=== PATIENT | female | born 1965 | race Caucasian/White ===

== ENCOUNTER 2023-05-13 19:11 | Emergency (ER) | payer OTHER, SELFPAY ==
--- NOTE | 2023-05-13 19:17 | ED_ITS ---
HPI - General Adult General Time Seen by Provider: 19:18 Date Seen: 05/13/23 Chief complaint: Unspecified Complaint, Adult Stated complaint: Bee sting Time Seen by Provider: 05/13/23 19:16 Source: patient, RN notes reviewed and old records reviewed Mode of arrival: ambulatory Limitations: no limitations History of Present Illness HPI narrative: 57-year-old female who comes in today with area of redness and pain after bee sting several days ago. She was seen at urgent care 2 days ago was started on Keflex for this, has had continued redness and warmth. She takes Singulair daily already and has been taking Claritin as well. Related Data Home Medications Medication Instructions Recorded Confirmed cholecalciferol (vitamin D3) 125 125 mcg PO QDAY 05/11/23 05/13/23 mcg (5,000 unit) capsule fexofenadine 180 mg tablet 180 mg PO Q24H 05/11/23 05/13/23 (Louisa Allergy) montelukast 10 mg tablet 10 mg PO DAILY 05/13/23 05/13/23 Previous Rx's Medication Instructions Recorded cephalexin 500 mg capsule 500 mg PO TID 7 days #21 caps 05/11/23 Allergies Allergy/AdvReac Type Severity Reaction Status Date / Time Sulfa (Sulfonamide Allergy Severe Anaphylaxis Verified 05/13/23 19:20 Antibiotics) Review of Systems Status of ROS: Reports: 10 or more systems reviewed and unremarkable except as noted in History and below Exam Narrative: Exam Narrative: General: well nourished , NAD Head: Atraumatic and normocephalic ENT: External ears and external nose are normal Eyes: Conjunctiva clear, pupils are equal reactive, external ocular motions are intact Neck: Full spontaneous range of motion of the neck Lungs: No respiratory distress Musculoskeletal: No tenderness or deformity Neurologic: No gross focal neurologic deficits Skin: Area of petechial erythema on the posterior calf on the right with jesenia tral 1 cm ruptured blister, this extends medially to the anterior medial lower leg. Trace edema distal to this. No redness or warmth of the ankle joint and no pain with passive movement Psych: Mood and affect are appropriate Const: Vital Signs, click to edit/add: Vital Signs - 24 hr 05/13/23 19:20 Temperature 97.7 F Pulse Rate [Pulse Oximeter] 80 Respiratory Rate 20 Blood Pressure [Ri ght Upper Arm] 132/75 Pulse Oximetry 97 Oxygen Delivery Me thod Room Air Course Course Hospital Course: Patient seen examined, prior records reviewed. Patient presents today with concern for an infected bee sting for which she is already on Keflex. On exam, this clinically appears to be a large local reaction, encourage patient to start taking antihistamines on a scheduled basis in addition to her Claritin and Singu lair. We discussed starting a prednisone burst but patient has had for reactions steroids in the past with need for prolonged taper and would like to avoid this. Will start doxycycline as cannot completely exclude infection, and have patient continue Keflex. Vital Signs Vital signs: Initial Vital Signs Temperature 97.7 F 05/13/23 19:20 Temperature Source Temporal Artery Scan 05/13/23 19:20 Pulse Rate 80 05/13/23 19:20 Pulse Rhythm Regular 05/13/23 19:20 Pulse Strength 3+ Normal 05/13/23 19:20 Respiratory Rate 20 05/13/23 19:20 Blood Pressure 132/75 05/13/23 19:20 Blood Pressure Mean 94 05/13/23 19:20 Pulse Oximetry 97 05/13/23 19:20 Oxygen Delivery Method Room Air 05/13/23 19:20 Vital Signs Temperature 97.7 F 05/13/23 19:20 Pulse Rate 80 05/13/23 19:20 Respiratory Rate 20 05/13/23 19:20 Blood Pressure 132/75 05/13/23 19:20 Pulse Oximetry 97 05/13/23 19:20 Oxygen Delivery Method Room Air 05/13/23 19:20 Temperature 97.7 F 05/13/23 19:20 Pulse Rate 80 05/13/23 19:20 Respiratory Rate 20 05/13/23 19:20 Blood Pressure 132/75 05/13/23 19:20 Pulse Oximetry 97 05/13/23 19:20 Oxygen Delivery Method Room Air 05/13/23 19:20 Medical Decision Making Medical Records Medical records reviewed: Yes I reviewed the patient's medical records Lab Data Lab results reviewed: Yes I reviewed the patient's lab results Discharge Plan Discharge Clinical Impression: Infected insect bite or sting Patient Disposition: Home, Self-Care Condition: Stable Instructions: Cold Compress or Soak (ED) Additional Instructions: Continue Keflex as previously prescribed Continue taking Claritin and Singulair Take Vistaril every 6 hours for 2 days as prescribed and then as needed. Do not take Benadryl and Vistaril together Start taking doxycycline as prescribed Follow-up with primary care in 2-3 days Activity Level: No Restrictions Discharge Diet: Regular Prescriptions: No Action cholecalciferol (vitamin D3) 125 mcg (5,000 unit) capsule 125 mcg PO QDAY fexofenadine [Louisa Allergy] 180 mg tablet 180 mg PO Q24H cephalexin 500 mg capsule 500 mg PO TID 7 Days Qty: 21 0RF montelukast 10 mg tablet 10 mg PO DAILY Stand Alone Forms: [employer] Info Instructions
[2023-05-13 19:20] VITALS: BP 132/75; PULSE 80; RESP 20; TEMP 36.5; O2SAT 97; BMI 25.8
== END 2023-05-13 19:53 | disposition home or self-care (01) ==
LOC: ED 19:43
PROVIDERS: Emergency Provider Family Medicine
DX: T63.441A Toxic effect of venom of bees, accidental (unintentional), initial encounter (principal)
CPT/HCPCS: 99282; 99283

== ENCOUNTER 2024-02-03 10:38 | Outpatient (CLI) | payer OTHER, SELFPAY | END 2024-02-03 10:39 | disposition home or self-care (01) | PROVIDERS: PCP Family Medicine; Visit Provider Family Medicine | DX: Z00.00 Encounter for general adult medical examination without abnormal findings (principal); R53.83 Other fatigue; E55.9 Vitamin D deficiency, unspecified; Z13.6 Encounter for screening for cardiovascular disorders | CPT/HCPCS: 80053; 80061; 82306; 84443 ==

== ENCOUNTER 2024-02-07 14:46 | Outpatient (CLI) | payer OTHER, SELFPAY ==
--- NOTE | 2024-02-07 15:00 | CRLHL7_ITS ---
For Patients: As a result of the Century Cures Act, medical imaging exams and procedure reports are released immediately into your electronic medical record. You may view this report before your referring provider. If you have questions, please contact your health care provider. BILATERAL SCREENING MAMMOGRAM WITH COMPUTER-AIDED DETECTION AND TOMOSYNTHESIS TECHNIQUE: CC and MLO views were obtained. These mammographic images have been obtained using full-field digital technique. These mammographic images were interpreted with the benefit of computer-aided detection. Breast Tomosynthesis was used in this interpretation. COMPARISON FILM: 01/23/19, 12/07/17, 07/26/16. FINDINGS: The breasts are heterogeneously dense, which may obscure small masses IMPRESSION: There is no radiographic evidence for malignancy. ASSESSMENT: BI-RADS Category 2: Benign RECOMMENDATION: Routine screening mammogram in 1 year. A lay language report of this examination will be provided to the patient. Daniel Jacques M.D. Diagnostic Radiologist [email or web address] MEENU/Dictated by: Daniel Jacques MD @ 02/15/2024 9:04:00 AM (Electronically Signed)
== END 2024-02-07 14:47 | disposition home or self-care (01) ==
LOC: MAMMO 14:47
PROVIDERS: PCP Family Medicine; Visit Provider Family Medicine
DX: Z12.31 Encounter for screening mammogram for malignant neoplasm of breast (principal); R92.2 Inconclusive mammogram
CPT/HCPCS: 77063; 77067

== ENCOUNTER 2024-03-08 07:42 | Outpatient (CLI) | payer OTHER, SELFPAY | END 2024-03-08 07:43 | disposition home or self-care (01) | PROVIDERS: PCP Family Medicine; Visit Provider Family Medicine | DX: D64.9 Anemia, unspecified (principal); R74.01 Elevation of levels of liver transaminase levels; Z11.59 Encounter for screening for other viral diseases; Z13.21 Encounter for screening for nutritional disorder | CPT/HCPCS: 80076; 82607; 82728; 83540; 86803 ==

== ENCOUNTER 2024-04-04 07:11 | Outpatient (CLI) | payer OTHER, SELFPAY ==
--- NOTE | 2024-04-04 07:15 | CRLHL7_ITS ---
For Patients: As a result of the Century Cures Act, medical imaging exams and procedure reports are released immediately into your electronic medical record. You may view this report before your referring provider. If you have questions, please contact your health care provider. INDICATION: Abdominal fullness and swelling COMPARISON: none TECHNIQUE: 2D gill scale and color Doppler images were acquired of the pelvis using a transabdominal and transvaginal approach. FINDINGS: Right posterior intramural fibroid is present measures 2.8 x 2.5 x 3.1 cm. Uterus measures 7.5 cm in length by 3.4 cm in AP diameter by 4.6 cm in transverse dimension. The endometrial lining measures 3 mm in composite thickness. The right ovary measures 2.1 x 0.8 x 1.4 cm in size and the left ovary measures 3.5 x 1.4 x 2.5 cm. The ovaries demonstrate normal arterial and venous blood flow on color Doppler analysis. There are no suspicious fluid collections within the cul-de-sac. Bilateral Essure devices. IMPRESSION: Right mid posterior intramural fibroid measures 2.8 x 2.5 x 3.1 cm. Endometrial thickness 3 millimeters. Dictated by Daniel Jacques MD @ 04/04/2024 12:33:06 PM (Electronically Signed)
== END 2024-04-04 07:12 | disposition home or self-care (01) ==
LOC: US 07:12
PROVIDERS: PCP Family Medicine; Visit Provider Family Medicine
DX: R19.00 Intra-abdominal and pelvic swelling, mass and lump, unspecified site (principal); D25.1 Intramural leiomyoma of uterus; R93.89 Abnormal findings on diagnostic imaging of other specified body structures
CPT/HCPCS: 76830; 76856

== ENCOUNTER 2024-05-02 07:33 | Outpatient (CLI) | payer OTHER, SELFPAY | END 2024-05-02 07:34 | disposition home or self-care (01) | LOC: NFLDREF 05-04 11:47 | PROVIDERS: PCP Family Medicine; Referring Provider Family Medicine; Visit Provider Family Medicine | DX: D50.0 Iron deficiency anemia secondary to blood loss (chronic) (principal); R74.01 Elevation of levels of liver transaminase levels | CPT/HCPCS: 80076; 82728; 83540; 83550 ==

== ENCOUNTER 2024-10-31 07:45 | Outpatient (CLI) | payer BC, SELFPAY | END 2024-10-31 07:46 | disposition home or self-care (01) | LOC: NFLDREF 11-03 01:53 | PROVIDERS: PCP Family Medicine; Referring Provider Family Medicine; Visit Provider Family Medicine | DX: D50.0 Iron deficiency anemia secondary to blood loss (chronic) (principal) | CPT/HCPCS: 82728; 83540; 83550 ==

== ENCOUNTER 2025-03-11 07:45 | Outpatient (CLI) | payer BC, SELFPAY | END 2025-03-11 07:46 | disposition home or self-care (01) | LOC: NFLDREF 03-13 03:15 | PROVIDERS: PCP Family Medicine; Referring Provider Family Medicine; Visit Provider Family Medicine | DX: E78.5 Hyperlipidemia, unspecified (principal); D50.0 Iron deficiency anemia secondary to blood loss (chronic); R74.01 Elevation of levels of liver transaminase levels; E55.9 Vitamin D deficiency, unspecified; M81.0 Age-related osteoporosis without current pathological fracture; Z11.59 Encounter for screening for other viral diseases | CPT/HCPCS: 80053; 80061; 82306; 82728; 87340 ==

== ENCOUNTER 2025-04-18 08:03 | Outpatient (CLI) | payer BC, SELFPAY ==
--- NOTE | 2025-04-18 08:15 | CRLHL7_ITS ---
For Patients: As a result of the Century Cures Act, medical imaging exams and procedure reports are released immediately into your electronic medical record. You may view this report before your referring provider. If you have questions, please contact your health care provider. INDICATION: BILATERAL SCREENING MAMMOGRAM, ASYMPTOMATIC 59 Y/O FEMALE COMPARISON: 02/07/2024, 02/04/2019, 12/07/2017 TECHNIQUE: Digital mammogram in CC and MLO projections including computer-aided detection (CAD) and tomosynthesis. BREAST COMPOSITION: There are scattered areas of fibroglandular density. FINDINGS: No suspicious findings. ASSESSMENT: BI-RADS 2 Benign RECOMMENDATION: Annual screening mammogram. A lay language report of this examination will be provided to the patient. Dictated by: Galina Menjivar MD @ 04/21/2025 17:51:05 (Electronically Signed)
== END 2025-04-18 08:04 | disposition home or self-care (01) ==
LOC: MAMMO 08:03
PROVIDERS: PCP Family Medicine; Visit Provider Family Medicine
DX: Z12.31 Encounter for screening mammogram for malignant neoplasm of breast (principal)
CPT/HCPCS: 77063; 77067